=== PATIENT | female | born 1975 | race Caucasian/White ===

== ENCOUNTER 2020-11-25 09:14 | Outpatient (CLI) | payer MEDICARE, MEDICAID, SELFPAY | END 2020-11-25 09:15 | disposition home or self-care (01) | LOC: ANHAUDASC 09:18 | PROVIDERS: PCP Family Medicine; Visit Provider Family Medicine | DX: Z01.10 Encounter for examination of ears and hearing without abnormal findings (principal) | CPT/HCPCS: 92557; 92567 ==

== ENCOUNTER 2022-02-10 10:27 | Outpatient (CLI) | payer MEDICARE, MEDICAID, SELFPAY | END 2022-02-10 10:28 | disposition home or self-care (01) | PROVIDERS: PCP Family Medicine; Visit Provider Family Medicine | DX: H91.93 Unspecified hearing loss, bilateral (principal) | CPT/HCPCS: 92557; 92567 ==